=== PATIENT | female | born 1960 | race Caucasian/White ===

== ENCOUNTER 2018-09-18 13:19 | Day surgery (SDC) | payer OTHER ==
[2018-09-18] MEDS ORDERED: NS 500 ML IV ONE (13:29)
[2018-09-18] MEDS ORDERED: LIDOCAINE 1% 300 MG/30 ML SDV ONE (14:00)
[2018-09-18] MEDS ORDERED: ALBUTEROL 3 ML DEYVIAL ONE (14:00)
[2018-09-18] MEDS ORDERED: EPINEPHrine 1 MG/ML INJ ONE ×2 (14:00→14:45)
[2018-09-18] MEDS ORDERED: fentaNYL 100 MCG/2 ML INJ ONE (14:45)
[2018-09-18] MEDS ORDERED: MIDAZOLAM 2 MG/2 ML VIAL ONE (14:45)
--- NOTE | 2018-09-18 15:08 | PDPROPOC ---
Sedation Plan of Care Sedation Plan of Care: vital signs stable, mental status noted, patient educated of risks, benefits, alternatives, patient can tolerate sedation ASA Classification: ASA 2 Planned drugs: fentanyl, midazolam Mallampati Score: Class 2 Mallampati Reference Image:
--- NOTE | 2018-09-18 15:08 | PDHPUP ---
History & Physical Update H&P update statement: This history and physical update is based on an assessment of the patient which was completed after admission or registration (within 24 hours), but prior to the surgery/procedure. H&P update: H&P reviewed & patient examined, no change in patient's condition since H&P completed
[2018-09-18] MEDS ORDERED: MIDAZOLAM 2 MG/2 ML VIAL IVP ONE (15:39)
[2018-09-18] MEDS ORDERED: fentaNYL 100 MCG/2 ML INJ IVP ONE (15:40)
--- NOTE | 2018-09-18 16:11 | GPN ---
[f rep st] PROCEDURE NOTE DATE OF PROCEDURE: 09/18/2018 REASON FOR PROCEDURE: Chronic cough, rule out endobronchial lesions, obtain deep cultures and endobr onchial biopsies. DESCRIPTION OF PROCEDURE: The procedure was performed in the endoscopy unit. Informed consent was o btained from the patient. Appropriate time-out was performed. N95 masks were worn. Topical anesthe lesa included 5 mL of 4% lidocaine to the oropharynx and approximately 25 mL to the vocal cords and lo wer tracheobronchial tree. The fiberoptic bronchoscope was passed via bite block orally into the larynx. The vocal cords were i dentified. These moved normally with cough and respiration. The bronchoscope was then advanced into the trachea and in the lower tracheobronchial tree bilaterally. There were no endobronchial lesions . There was no evidence of extrinsic compression. The mucosa generally was mildly erythematous and edematous. Secretions were minimal. No mucus plugs were seen. Bilateral bronchial washes and bronchioalveolar lavage samples from distal segments were obtained and combined. Following this, endobronchial biopsies were taken from the bronchus intermedius and the r ight upper lobe. There were no complications. Vital signs and oxygen saturations on supplemental oxygen remained norm al throughout the procedure. IMPRESSION: 1. Normal endobronchial anatomy. 2. Mild erythema and edema, generalized. 3. No evidence of endobronchial lesions or extrinsic compression. 4. Minimal secretions. 5. Appropriate samples were sent to the lab. /[id number]/[id number]
[2018-09-18 16:38] VITALS: BP 110/77
== END 2018-09-18 16:37 | disposition home or self-care (01) ==
LOC: FSGY 13:19
PROVIDERS: ATTEND Internal Medicine Pulmonary Disease
PROC: 0B938ZX Drainage of Right Main Bronchus, Via Natural or Artificial Opening Endoscopic, Diagnostic (ICD-10-PCS; principal; 2018-09-18 14:30)
PROC: 0BB58ZX Excision of Right Middle Lobe Bronchus, Via Natural or Artificial Opening Endoscopic, Diagnostic (ICD-10-PCS; principal; 2018-09-18 14:30)
PROC: 0B978ZX Drainage of Left Main Bronchus, Via Natural or Artificial Opening Endoscopic, Diagnostic (ICD-10-PCS; principal; 2018-09-18 14:30)
DX: R05 Cough (principal); J42 Unspecified chronic bronchitis; K21.9 Gastro-esophageal reflux disease without esophagitis
CPT/HCPCS: J0171; J2250; J3010; J7613